=== PATIENT | female | born 1980 | race Caucasian/White ===

== ENCOUNTER 2020-02-02 11:46 | Emergency (ER) | payer MEDICAID, SELFPAY ==
[~2020-02-02] VITALS: Ht 180.3 cm; Wt 68.5 kg
[2020-02-02 11:48] VITALS: BP 104/58; Ht 180.3 cm; Wt 68.5 kg
== END 2020-02-02 13:00 | disposition home or self-care (01) ==
LOC: ED 11:46
DX: R06.02 Shortness of breath (principal); M79.10 Myalgia, unspecified site; Z20.828 Contact with and (suspected) exposure to other viral communicable diseases
CPT/HCPCS: U0003

== ENCOUNTER 2020-02-11 11:45 | Emergency (ER) | payer MEDICAID ==
[~2020-02-11] VITALS: Ht 152.4 cm; Wt 68.9 kg
[2020-02-11 11:47] VITALS: Ht 152.4 cm; Wt 68.9 kg
[2020-02-11 15:16] VITALS: BP 112/76
== END 2020-02-11 15:16 | disposition home or self-care (01) ==
LOC: ED 11:45
DX: U07.1 COVID-19 (principal); J12.89 Other viral pneumonia